=== PATIENT | male | born 1985 | race Caucasian/White ===

== ENCOUNTER 2016-11-10 18:50 | Emergency (ER) | payer BC ==
[~2016-11-10] VITALS: Ht 185.4 cm; Wt 86.4 kg
[~2016-11-10 18:50] MED LIST: LANTUS100 U/ML SC; LANTUS100 U/ML SQ; LEVOXYL0.05 MG PO; NOVOLOG 100U100 U/M1; NOVOLOG 100U100 U/M1 SC
[2016-11-10 18:52] VITALS: TEMP 97.7
[2016-11-10] MEDS ORDERED: NORCO 325 MG-51 TAB PO (19:16)
[2016-11-10 20:05] VITALS: BP 138/71; PULSE 80
== END 2016-11-10 20:05 | disposition home or self-care (01) ==
LOC: COL.ER 18:50
DX: T20.26XA Burn of second degree of forehead and cheek, initial encounter (principal); T20.16XA Burn of first degree of forehead and cheek, initial encounter; X12.XXXA Contact with other hot fluids, initial encounter; E10.9 Type 1 diabetes mellitus without complications; Z96.41 Presence of insulin pump (external) (internal); Z23 Encounter for immunization

== ENCOUNTER 2017-01-27 10:55 | Emergency (ER) | payer BC ==
[~2017-01-27] VITALS: Ht 185.4 cm; Wt 90.9 kg
[~2017-01-27 10:55] MED LIST changes: +NORCO 325 MG-51 TAB PO
[2017-01-27 10:57] VITALS: BP 147/78; PULSE 72; TEMP 98
[2017-01-27 12:05] LABS: PH 5 (5-8); SQUAMOUS EPITHELIAL None Seen /hpf; URINE APPEARANCE Clear; URINE BACTERIA Rare /hpf; URINE BILIRUBIN Negative (NEGATIVE); URINE BLOOD Negative (NEGATIVE); URINE COLOR Straw; URINE GLUCOSE 3+ (NEGATIVE); URINE KETONE 1+ (NEGATIVE); URINE RBC 0-2 /hpf; URINE UROBILINOGEN Negative (NEGATIVE); URINE WBC 0-2 /hpf
[2017-01-27 12:13] LABS: BASO # 0.1 (0.0-0.2); BASO % 1.1 % (0.0-2.0); EOS # 0.1 (0.0-0.7); EOS % 1.4 % (0-4.0); GRAN # 2.5 (1.4-6.5); GRAN % 56.2 % (42.2-75.2); HEMATOCRIT 42.9 % (42.0-52.0); LYMPH # 1.5 (1.2-3.4); LYMPH % 34.5 % (20.0-51.0); MEAN CELL VOLUME 85 fl (80.0-100.0); MEAN CORPUSCULAR HEMOGLOBIN 30 pg (27.0-31.0); MEAN CORPUSCULAR HGB CONC 35 g/dl (33.0-37.0); MEAN PLATELET VOLUME 12.1 fl (7.4-10.4); MONO # 0.3 (0.1-0.6); MONO % 6.8 % (1.7-9.3); PLATELET COUNT 191 K/mm3 (130-400); RED BLOOD COUNT 5.05 M/mm3 (4.20-5.60); REDCELL DISTRIBUTION WIDTH-CV 11.9 % (11.5-14.5); WHITE BLOOD COUNT 4.4 K/mm3 (4.8-10.8)
[2017-01-27 12:16] LABS: ADJUSTED CALCIUM 9.4 mg/dL (8.4-10.2); ALANINE AMINOTRANSFERASE 29 U/L (21-72); ALBUMIN 4.7 gm/dL (3.5-5.0); ALKALINE PHOSPHATASE 164 U/L (50-136); ANION GAP 13 mmol/L (7-16); BLOOD UREA NITROGEN 14 mg/dL (9-20); CARBON DIOXIDE 26 mmol/L (22-30); CHLORIDE 96 mmol/L (98-107); CREATININE, serum 0.85 mg/dL (0.66-1.25); GLUCOSE 383 mg/dL (74-106); SODIUM 135 mmol/L (137-145); TOTAL PROTEIN 7.8 gm/dL (6.4-8.2)
== END 2017-01-27 12:50 | disposition home or self-care (01) ==
LOC: COL.ER 10:55
PROVIDERS: Nurse Practitioner
DX: E10.65 Type 1 diabetes mellitus with hyperglycemia (principal); Z96.41 Presence of insulin pump (external) (internal); Z76.0 Encounter for issue of repeat prescription; Z79.4 Long term (current) use of insulin
CPT/HCPCS: J1815

== ENCOUNTER 2017-06-01 18:07 | Emergency (ER) | payer SELFPAY ==
[~2017-06-01] VITALS: Ht 188 cm; Wt 90.9 kg
[2017-06-01 18:13] VITALS: BP 129/62; TEMP 99.4
[2017-06-01] MEDS ORDERED: DOXYCYCLINE 10100 MG PO (19:35)
[2017-06-01] MEDS ORDERED: NORCO 325 MG-51 TAB PO (19:35)
[2017-06-01 20:12] VITALS: PULSE 100
== END 2017-06-01 20:16 | disposition home or self-care (01) ==
LOC: COL.ER 18:07
DX: T80.29XA Infection following other infusion, transfusion and therapeutic injection, initial encounter (principal); L02.416 Cutaneous abscess of left lower limb; E10.9 Type 1 diabetes mellitus without complications; Z96.41 Presence of insulin pump (external) (internal); Z88.0 Allergy status to penicillin

== ENCOUNTER → 2018-05-21 | Outpatient (CLI) | payer BC ==
[~2018-05-21] MED LIST changes: +DOXYCYCLINE 10100 MG PO; +HUMALOG100 U/ML SQ; +MULTI VITAMINS1 TAB PO
== END ==
LOC: COL.VAS 08:37
DX: M79.652 Pain in left thigh (principal)